=== PATIENT | female | born 2005 | race Caucasian/White ===

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

== ENCOUNTER 2023-03-21 13:34 | Outpatient (CLI) | payer BC ==
[2023-03-22 02:07] LABS: HBsAG SCREEN Negative (Negative)
[2023-03-22 06:11] LABS: RPR Non Reactive (Non Reactive)
[2023-03-22 08:10] LABS: HIV SCREEN 4TH GENERATION Non Reactive (Non Reactive)
[2023-03-22 09:09] LABS: HCV AB Non Reactive (Non Reactive)
== END 2023-03-21 13:35 | disposition home or self-care (01) ==
LOC: LAB 13:34
PROVIDERS: ATTEND Nurse Practitioner Obstetrics & Gynecology
DX: Z11.3 Encounter for screening for infections with a predominantly sexual mode of transmission (principal)
CPT/HCPCS: 36415; 86592; 86803; 87340; 87389

== ENCOUNTER 2023-05-22 08:53 | Outpatient (CLI) | payer BC ==
[2023-05-22 14:45] LABS: BASOPHILS % (AUTO) 0.5 %; EOSINOPHILS # (AUTO) 0.1 10^3/uL (0.0-0.7); EOSINOPHILS % (AUTO) 1.2 %; HCT - HEMATOCRIT 39.9 % (37.0-47.0); HGB - HEMOGLOBIN 13.6 g/dL (12.0-16.0); LYMPHOCYTES # (AUTO) 1.6 10^3/uL (1.5-3.5); LYMPHOCYTES % (AUTO) 37.7 %; MEAN CORPUSCULAR HEMOGLOBIN 29.9 pg (27.0-31.0); MEAN CORPUSCULAR HGB CONC 34.1 g/dL (32.0-36.0); MEAN CORPUSCULAR VOLUME 87.7 fL (81.0-99.0); MEAN PLATELET VOLUME 11.4 fL (7.9-10.8); MONOCYTES # (AUTO) 0.3 10^3/uL (0.0-1.0); NEUTROPHILS # (AUTO) 2.2 10^3/uL (1.5-6.6); NEUTROPHILS % (AUTO) 52.4 %; PLT - PLATELET COUNT 188 10^3/uL (130-450); RED BLOOD COUNT 4.55 10^6/uL (4.20-5.40); RED CELL DISTRIBUTION WIDTH 12.2 % (12.0-15.0); WHITE BLOOD COUNT 4.2 x10^3/uL (4.8-10.8)
[2023-05-22 15:05] LABS: ALBUMIN 4.4 g/dL (3.2-5.5); ALBUMIN/GLOBULIN RATIO 2.2 (1.0-2.2); BILIRUBIN,TOTAL 1.9 mg/dL (0.2-1.0); CALCIUM 9.1 mg/dL (8.5-10.3); POTASSIUM 4.1 mmol/L (3.5-4.5); TOTAL PROTEIN 6.4 g/dL (6.4-8.9)
[2023-05-22 15:25] LABS: THYROID STIMULATING HORMONE 1.91 uIU/mL (0.34-5.60)
== END 2023-05-22 08:54 | disposition home or self-care (01) ==
LOC: LAB.S 08:53
PROVIDERS: ATTEND Physician Assistant
DX: D53.9 Nutritional anemia, unspecified (principal); R53.83 Other fatigue; R53.81 Other malaise
CPT/HCPCS: 36415; 80053; 84443; 85025

== ENCOUNTER 2023-10-30 08:34 | Day surgery (SDC) | payer BC ==
[~2023-10-30 08:34] MED LIST: ceFAZolin 2 GM VIAL ONE; metroNIDAZOLE 500 MG/100 ML 500 MG/100 ML BAG ONE
[2023-10-30 08:49] LABS: HCG UR QUAL NEGATIVE
[2023-10-30] MEDS: LACTATED RINGERS 1,000 ML IV ONE ×2 (08:57→12:30)
[2023-10-30] MEDS: ACETAMINOPHEN 325 MG TABLET PO ONE (09:08)
--- NOTE | 2023-10-30 09:46 | ANESTHESIA ---
Pre-Anesthesia VS, & Labs - Diagnosis chronic pelvic pain - Procedure hysterectomy Vital Signs: Temp Pulse Resp BP Pulse Ox O2 Flow Rate 36.5 C 91 20 121/73 100 10/30/23 08:57 10/30/23 08:57 10/30/23 08:57 10/30/23 08:57 10/30/23 08:57 Height: 5 ft 4 in Weight (kg): 68.04 kg Body Mass Index: 25.7 BMI Classification: Overweight - NPO >8 hours - Is Patient ?: No Home Medications and Allergies Home Medications: Ambulatory Orders Albuterol Sulf [Ventolin Hfa Inhaler] 1 - 2 puffs INH Q4HR PRN 10/22/23 Methylphenidate HCl 10 mg PO DAILY 10/22/23 lamoTRIgine [Lamictal] 200 mg PO DAILY 10/22/23 traZODone [Desyrel] 50 mg PO DAILY PRN 10/22/23 Albuterol Sulf [Ventolin Hfa Inhaler] 1 - 2 puffs INH Q4HR PRN 10/22/23 Methylphenidate HCl 10 mg PO DAILY 10/22/23 lamoTRIgine [Lamictal] 200 mg PO DAILY 10/22/23 traZODone [Desyrel] 50 mg PO DAILY PRN 10/22/23 Allergies/Adverse Reactions: Allergies Allergy/AdvReac Type Severity Reaction Status Date / Time egg Allergy Unknown Verified 10/30/23 09:05 Anes History & Medical History - Anesthetic History Anesthesia Complications: reports: Emergence delirium Family history of Anesthesia Complications: Denies Family history of Malignant Hyperthermia: Denies - Medical History Cardiovascular: reports: None Pulmonary: reports: Asthma Gastrointestinal: reports: None Urinary: reports: None Neuro: reports: Migraines Musculoskeletal: reports: Chronic back pain Endocrine/Autoimmune: reports: None Skin: reports: None Smoking Status: Never smoker Psychosocial: reports: Depression, Anxiety History of Cancer?: No Exam General: Alert, Oriented x3, Cooperative Dental: WNL Mouth Openin Fingerbreadth Neck Mobility: Normal Mallampati classification: I Thyromental Distance: 4-6 cm Respiratory: Lungs clear Cardiovascular: Regular rate Plan Anesthesia Type: General Consent for Procedure(s) Verified and Reviewed: Yes Code Status: Attempt Resuscitation ASA classification: 2-Mild systemic disease Is this case an emergency?: No
[2023-10-30] MEDS ORDERED: MORPHINE 2 MG/ML CARPUJECT IVP PRN (09:47)
[2023-10-30] MEDS ORDERED: ePHEDrine 50 MG/ML VIAL IVP PRN (09:47)
[2023-10-30] MEDS ORDERED: METOCLOPRAMIDE 10 MG/2 ML VIAL IVP PRN (09:47)
[2023-10-30] MEDS ORDERED: NALOXONE 0.4 MG/ML VIAL IVP PRN (09:47)
[2023-10-30] MEDS ORDERED: HYDROmorphone 0.5 MG/0.5 ML SYRINGE IVP PRN (09:47)
[2023-10-30] MEDS ORDERED: ATROPINE ABBOJECT 1 MG/10 ML SYRINGE IVP PRN (09:47)
[2023-10-30] MEDS ORDERED: ONDANSETRON 4 MG/2 ML VIAL IVP PRN ×2 (09:47→12:50)
[2023-10-30] MEDS ORDERED: fentaNYL 100 MCG/2 ML VIAL IVP PRN (09:47)
[2023-10-30] MEDS ORDERED: BUPIVACAINE 0.25% PF 30 ML VIAL ONE (09:49)
[2023-10-30] MEDS ORDERED: LIDOCAINE 1%-EPI 1:100000 20 ML MDV ONE (09:49)
[2023-10-30] MEDS ORDERED: ROCURONIUM 50 MG/5 ML VIAL ONE (09:51)
[2023-10-30] MEDS ORDERED: diphenhydrAMINE INJ 50 MG/ML VIAL ONE (09:51)
[2023-10-30] MEDS ORDERED: KETOROLAC 30 MG/ML VIAL ONE (09:51)
[2023-10-30] MEDS ORDERED: DEXAMETHASONE 4 MG/ML VIAL ONE (09:51)
[2023-10-30] MEDS ORDERED: PROPOFOL 200 MG/20 ML VIAL IVP ONE (09:51)
[2023-10-30] MEDS ORDERED: LIDOCAINE-PF 2% 10 ML AMP SUBQ ONE (09:51)
[2023-10-30] MEDS ORDERED: ONDANSETRON 4 MG/2 ML VIAL ONE (09:51)
[2023-10-30] MEDS ORDERED: MIDAZOLAM 2 MG/2 ML VIAL ONE (09:53)
[2023-10-30] MEDS ORDERED: fentaNYL 100 MCG/2 ML VIAL ONE ×2 (09:53→11:11)
[2023-10-30] MEDS: LACTATED RINGERS 1,000 ML IV SCH (10:00)
[2023-10-30] MEDS ORDERED: KETAMINE 200 MG/20 ML VIAL ONE (11:05)
[2023-10-30] MEDS: BUPIVACAINE 0.25% PF 30 ML VIAL SUBQ ONE ×2 (11:47)
[2023-10-30] MEDS ORDERED: SUGAMMADEX 200 MG/2 ML VIAL IVP ONE (12:10)
[2023-10-30] MEDS ORDERED: SCOPOLAMINE PATCH TOP PRN (12:50)
[2023-10-30] MEDS: ACETAMINOPHEN 500 MG TABLET PO SCH (13:21)
[2023-10-30] MEDS: KETOROLAC 30 MG/ML VIAL IVP SCH (13:22)
--- NOTE | 2023-10-30 13:33 | ANESTHESIA POST OP EVALUATION ---
Anesthesia Post Eval - Post Anesthesia Eval Vitals: Last Vital Signs Temp 37.0 C 10/30/23 13:21 Pulse 77 10/30/23 13:21 Resp 18 10/30/23 13:21 BP 110/61 10/30/23 13:21 Pulse Ox 99 10/30/23 13:21 O2 Flow Rate CV Function Including HR & BP: Stable Pain Control: Satisfactory Nausea & Vomiting: Negative Mental Status: Baseline Respiratory Status: Airway Patent Hydration Status: Satisfactory Anesthesia Complications: None
[2023-10-30 15:04] VITALS: O2SAT 98
[2023-10-30] MEDS: oxyCODONE 5 MG TABLET PO PRN (16:40)
[2023-10-30 17:45] VITALS: BP 131/79
[2023-10-30] MEDS ORDERED: DOCUSATE SODIUM 100 MG CAPSULE PO SCH (21:00)
--- NOTE | 2023-10-30 22:40 | OPERATIVE REPORT ---
Operative Report - General Procedure Date: 10/30/23 Planned Procedure: laparoscopic vaginal hysterectomy with bilateral salpingectomies. Pre-Op Diagnosis: dsymenorrhea and menorrhagia Procedure Performed: as above. Post Op Diagnosis: same - Procedure Note Primary Surgeon: Salina Villa MD Secondary Surgeon: Khoi Dahl MD Anesthesia Provider: Elizabeth Napier CRNA Anesthesia Technique: General ET tube Pathology: uterus and tubes IV Fluids (mL): 1,000 Estimated Blood Loss (mL): 25 Urine Output (mL): 100 - Other Other Information/Narrative: Church Administrator in OR: My registered nurse first assistant was present throughout the entire case and assisted with placing trocars, retraction and tissue stabilization and closing the abdominal incisions after the case was over. FINDINGS: There were no palpable adnexal masses on exam under anesthesia. Uterus was mobile and small. Tubes and ovaries appeared normal. There were 2 possible spots of endometriosis on the right lateral abdominal well and one at the left pelvic brim. These were cauterized. Rest of the pelvis and abdomen appeared normal. The inguinal canals did not have hernias. The liver appeared normal. INDICATION FOR PROCEDURE: Patient is a 18 yo G0 sure of her decision to have her uterus removed as it is making her very miserable and none of the medications she has tried have helped her feel better without worse side effects. She has a Mirena IUD in now and is bleeding too much. Periods are disabling to her. She has never wanted to have children. She is very sure that she wants to proceed with this. Her mother is with her and is sad but supportive. She has signed the appropriate consent forms and understands that she will never be able to bear children with her uterus removed. Procedure: After explaining the risks and benefits, indications and alternatives, the patient was taken to the operating room where general anesthesia was induced without difficulty. She was then prepped and draped in the normal sterile fashion in the dorsal lithotomy position in [facility]. A timeout was performed. SCDs were on prior to procedure. Preoperative antibiotics were with Ancef 2 grams and Flagyl 500 mg were given. A split speculum was placed in the vagina and a single-tooth tenaculum placed on anterior lip of the cervix. A cone cannula was then placed for uterine manipulation. A oviedo catheter was placed in the bladder. I then changed my gloves and turned attention to the patient's abdomen. The umbilicus was infiltrated with quarter percent Marcaine. A 5 mm incision was made in the umbilical base. A 5 mm optical port was placed with a 5 mm 0 degree scope. The abdomen was filled with CO2 gas to 15 mm hg of pressure. Abdominal cavity was explored with findings as noted above. Accessory ports were placed in the right and left lower quadrant under direct visualization, after infiltrating with local anesthetic. The LigaSure device was then used to seal and remove the fallopain tube on the right. The mesosalpinx with sealed and divided. The round ligament was sealed and divided, all keeping close to the uterus. The dissection was stopped before the cardinal and uterosacral ligaments as these will be taken down from above to be sure they are affixed to the vaginal cuff for support. A similar dissection was done on the left. Instruments were then removed and attention was turned to the vagina. The uterine manipulator was removed. The oviedo catheter was removed. A posterior weighted speculum was placed in the vagina, and the cervix was grasped with two single-tooth tenacula. 0.25% Marcaine was injected circumferentially around the cervix. A bovie was then used to make a circumferential incision around the cervix. Martínez scissors were then used to gently dissect the anterior and posterior surfaces of the cervix, allowing for the bladder and rectum to be dissected away. The posterior peritoneum was entered. A figure of 8 stitch of 0 Vicryl was used to fix the peritoneum to the vaginal edge. The weighted speculum was placed over this edge but the posterior peritoneal opening was not large enough yet for the speculum blade. Z clamps were used bilaterally to clamp the uterosacral ligaments. These pedicles were transected and then suture ligated with 0 Vicryl. These pedicles were then affixed to the cuff edge. The ca rdinal ligaments were similarly clamped cut and tied off with 0 Vicryl suture and affixed to the cuff. The anterior peritoneum was then entered. The posterior peritoneum was then fully entered. The last pedicles were transected and the uterus was removed intact. All pedicles were noted to be hemostatic. The anterior cuff edge was brought together with the anterior peritoneum with a figure of 8 stitch. The vaginal cuff edges were then closed with 0 Vicryl in a running baseball type stitch, turning in the raw edges. Excellent hemostasis was noted. All instruments were then removed from the vagina. Gloves were changed and attention was returned to the abdomen. The laparoscopy instruments were replaced and the surgical area were examined. There was some small areas of oozing which were cauterized. The small spots of possible endometriosis noted earlier were cauterized using unipolar cautery on the maryland clamp. Excellent hemostasis was noted. Ports were opened, allowing gas to escape and then were removed and closed with 4-0 Monocryl. Steri strips and a bandaid were placed. Patient was awakened and taken recovery in stable condition. Many pictures were taken, per the patient's request, including of the uterus after it was removed. Drains: none Complications: None Counts: Correct x 2
== END 2023-10-30 17:15 | disposition home or self-care (01) ==
LOC: SDS 08:34 → MS3 13:16 → SDS 17:15
PROVIDERS: ATTEND Obstetrics & Gynecology
PROC: 0UT9FZZ Resection of Uterus, Via Natural or Artificial Opening With Percutaneous Endoscopic Assistance (ICD-10-PCS; principal; 2023-10-30 10:00)
PROC: 0UT7FZZ Resection of Bilateral Fallopian Tubes, Via Natural or Artificial Opening With Percutaneous Endoscopic Assistance (ICD-10-PCS; 2023-10-30 10:00)
DX: N94.6 Dysmenorrhea, unspecified (principal); N92.0 Excessive and frequent menstruation with regular cycle; J45.909 Unspecified asthma, uncomplicated; Z32.02 Encounter for pregnancy test, result negative
CPT/HCPCS: 58552; 81025; A9270; J1200; J3490; J7120